=== PATIENT | female | born 1935 | race Caucasian/White ===

== ENCOUNTER 2018-12-14 11:43 | Observation (INO) | payer MEDICARE ==
[2018-12-14 12:19] LABS: #Eosinphils 0.1 thou/uL (0.0-0.7); #Lymphocytes 1.3 thou/uL (1.20-3.40); #Monocytes 0.5 thou/uL (0.11-0.59); #Neutrophils 4.1 thou/uL (1.40-6.50); %Basophils 0.4 % (0.0-1.0); %Eosinophils 1.4 % (0.0-10.0); %Monocytes 8.1 % (0.0-10.0); %Neutrophils 68.2 % (42.0-75.0); Hemoglobin 12.8 g/dL (12.0-16.0); Mean Corpuscular HGB CONC 32.2 g/dL (32.0-36.0); Mean Corpuscular Volume 87.1 fL (78.0-98.0); Platelet Count 196 thou/uL (130-400); RBC Distribution Width 13.6 % (11.5-14.5); Red Blood Cell (RBC) Count 4.56 mill/uL (4.20-5.40)
[2018-12-14 12:50] LABS: ALT (SGPT) 18 U/L (8-55); AST (SGOT) 27 U/L (5-34); Albumin 4.1 g/dL (3.4-4.8); Alkaline Phosphatase 105 U/L (40-150); Anion Gap 14 mmol/L (10-20); BUN (Urea Nitrogen) 25 mg/dL (9.8-20.1); Bilirubin, Total 0.6 mg/dL (0.2-1.2); CK (CPK) 162 U/L (29-168); Calc. Creatinine Clearance 0 mL/min (70-130); Carbon Dioxide 25 mmol/L (23-31); Chloride 104 mmol/L (98-107); Estimated GFR-MDRD 40; Globulin 3.1 g/dL (2.4-3.5); Glucose 102 mg/dL (83-110); Potassium 3.8 mmol/L (3.5-5.1); Protein, Total 7.2 g/dL (6.0-8.3); Sodium 139 mmol/L (136-145)
[2018-12-14] MEDS ORDERED: cefTRIAXone\\ROCEPHIN 2 GM VIAL ONE (12:52)
[2018-12-14] MEDS ORDERED: ISOVUE-370 76%-LOCM 1 ML ONE (13:46)
--- NOTE | 2018-12-14 13:48 | RAD ---
PA AND LATERAL CHEST: HISTORY: Shortness of breath. History of bronchitis. FINDINGS: Heart size is within normal limits. There are atherosclerotic changes of the aorta. Some linear sca rring in the region of the lingula. There is no focal infiltrative process. IMPRESSION: No active intrathoracic disease. POS: [facility]
[2018-12-14 15:15] VITALS: BMI 29.3
[2018-12-14] MEDS ORDERED: Ondansetron ODT 4 MG TAB SL PRN (15:54)
[2018-12-14] MEDS ORDERED: Ondansetron PF 4 MG/2 ML Vial IVP PRN (15:54)
[2018-12-14] MEDS ORDERED: Senokot S 8.6-50 MG TAB PO PRN (17:06)
[2018-12-14] MEDS ORDERED: Acetaminophen 325 MG TAB PO PRN (17:06)
[2018-12-14] MEDS ORDERED: cefTRIAXone\\ROCEPHIN 1 GM in Sodium Chloride 0.9% 100 ML IVPB SCH (17:15)
[2018-12-14] MEDS ORDERED: Diabetic Tussin 200 MG/10 ML UDCUP PO PRN (17:47)
--- NOTE | 2018-12-14 17:50 | HP ---
PRIMARY CARE PROVIDER: Dr. Angel Merrill in [place], [place]. CHIEF COMPLAINT: Shortness of breath. HISTORY OF PRESENT ILLNESS: Ms. Pike is a pleasant 83-year-old lady, who was seen at [facility] on December 14, 2018. Two weeks ago flew from [place] to [place] to go on an [facility] cruise. She reports that during that trip, the passenger behind her was coughing. While on the cruise, she started having cough and feeling unwell. Towards the end of the cruise, she was seen at Urgent Care in [place] and was prescribed nebulizers and cough medication. She returned to this area on December 11. She went to an urgent care clinic. She was started on azithromycin. She reports that she continues to have cough that is productive of greenish sputum. She felt feverish, although she did not check her temperature. She also reports nausea, dizziness, and fatigue. She came to the emergency room because of ongoing symptoms. REVIEW OF SYSTEMS: All other systems were reviewed and found to be negative. PAST MEDICAL HISTORY: Thyroid nodule, osteoarthritis, and hypertension. SURGICAL HISTORY: Oophorectomy, ovarian cyst removal, bowel resection, cholecystomy followed by reversal, thyroid nodule surgery and minimally invasive back surgery. SOCIAL HISTORY: The patient denies tobacco use, alcohol use, or recreational drug use. FAMILY HISTORY: Family history of premature coronary artery disease. ALLERGIES: NONSTEROIDAL ANTI-INFLAMMATORY AGENTS AND TRAMADOL. CURRENT MEDICATIONS: 1. Aspirin 81 mg daily. 2. Gabapentin 300 mg 2 times a day. 3. Tylenol Extra Strength as needed. 4. Benicar HCT 20/12.5 mg daily. 5. Methimazole 5 mg daily. 6. Celebrex 200 mg daily. CODE STATUS: I discussed her code status. She is full code. PHYSICAL EXAMINATION: GENERAL: Ms. Pike is awake and alert, not in acute distress. VITAL SIGNS: Blood pressure is 140/77, pulse 79, respiratory rate 18, and oxygen saturation 98% on 2 L of oxygen. She is afebrile. EYES: No scleral icterus, no conjunctival pallor. ENT: Moist mucosal membranes. No oropharyngeal erythema or exudates. NECK: Supple, nontender, trachea is midline. RESPIRATORY: Accessory muscles of breathing are not active. Chest wall movements are symmetric bilaterally. LUNGS: Reveals diffuse expiratory wheeze. CARDIOVASCULAR: S1 and S2 are heard, regular. Peripheral pulses palpable. No carotid bruit. No pericardial rub. ABDOMEN: Soft, nontender, bowel sounds heard, no hepatomegaly, no splenomegaly. NEUROLOGIC: Cranial nerves 2 through 12 intact, deep tendon reflexes 2+. MUSCULOSKELETAL: Power is 5/5 in all 4 extremities. SKIN: No rashes or subcutaneous nodules. LYMPHATIC: No cervical lymphadenopathy. PSYCHIATRIC: Normal mood, normal affect, the patient is oriented to person, place, and time. LABORATORY DATA: Ms. Pike's labs and investigations were reviewed. I reviewed her electrocardiogram, which shows normal sinus rhythm, no ST changes to suggest an acute coronary syndrome. I also reviewed her chest x-ray, which does not show any pulmonary infiltrates. She has an unremarkable CBC and normal electrolytes. Blood urea nitrogen and creatinine are elevated at 25 and 1.28 respectively. BNP is mildly elevated at 143.5. Troponin I is normal. LFTs are normal. ASSESSMENT AND PLAN: Ms. Pike is a pleasant 83-year-old lady, seen at [facility] on December 14, 2018. Her problem list includes: 1. Acute bronchitis: Ms. Pike is presenting with acute bronchitis. She will be admitted to the hospital for further management. She will receive intravenous ceftriaxone and levofloxacin. She will also receive bronchodilators, intravenous steroids and p.r.n. oxygen. 2. Hypertension: We will resume her home medications, monitor vital signs and titrate antihypertensives as needed. 3. Hyperthyroidism: We will continue methimazole. 4. Renal failure: Chronicity was unclear. She also has elevated blood urea nitrogen. We will provide intravenous hydration and recheck her labs. 5. We will also check D-dimer to rule out pulmonary embolism, given her recent long distance travel. Many thanks for allowing me to participate in your patient's care. Please feel free to contact me with any questions or concerns. LEVEL OF RISK: High. LEVEL OF COMPLEXITY: High. Job ID: [id number]
--- NOTE | 2018-12-14 17:52 | CT ---
EXAM: CT pulmonary angiogram with IV contrast and 3-D MIP reconstructions PROVIDED CLINICAL HISTORY: Shortness of breath COMPARISON: None FINDINGS: There is no evidence for central or segmental pulmonary embolus. Extensive vascular calcification inc luding coronary calcium. Biapical pleural-parenchymal scarring changes are seen, more conspicuous on the left. 6 mm noncalcified pulmonary nodule right lung base. No pleural fluid or pneumothorax elyssa arent. No evidence for thoracic lymph node enlargement. The airway appears patent and of normal caliber. The visualized portions of the upper abdomen demonstrate no acute findings. The osseous stru ctures demonstrate no concerning lytic or blastic lesions. There is a markedly enlarged thyroid gland which produces prominent rightward deviation of the trachea to the level of the great vessel or igins. IMPRESSION: 1. No evidence for central or segmental pulmonary embolus. 2. 6 millimeter noncalcified right lower lobe pulmonary nodule. Six-month follow-up recommended. 3. Conspicuous atherosclerosis including coronary calcium. 4. 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
[2018-12-14] MEDS: methylPREDNISolone Sod Succ 40 MG VIAL IVP SCH ×2 (17:54→23:59)
[2018-12-15] MEDS: methylPREDNISolone Sod Succ 40 MG VIAL IVP SCH ×2 (04:48→12:23)
[2018-12-15 06:06] LABS: #Lymphocytes 0.7 thou/uL (1.20-3.40); #Monocytes 0.1 thou/uL (0.11-0.59); %Basophils 0.5 % (0.0-1.0); %Eosinophils 0.2 % (0.0-10.0); %Lymphocytes 13.8 % (21.0-51.0); %Monocytes 1.1 % (0.0-10.0); %Neutrophils 84.5 % (42.0-75.0); Hemoglobin 12.6 g/dL (12.0-16.0); Mean Corpuscular HGB CONC 32.4 g/dL (32.0-36.0); Mean Corpuscular Hemoglobin 28.1 pg (27.0-31.0); Mean Corpuscular Volume 86.7 fL (78.0-98.0); Mean Platelet Volume 9.3 fL (7.4-10.4); Platelet Count 209 thou/uL (130-400); RBC Distribution Width 13.6 % (11.5-14.5); Red Blood Cell (RBC) Count 4.49 mill/uL (4.20-5.40); White Blood Cell (WBC) Count 4.8 thou/uL (4.8-10.8)
[2018-12-15 06:26] LABS: Anion Gap 15 mmol/L (10-20); BUN (Urea Nitrogen) 26 mg/dL (9.8-20.1); Calc. Creatinine Clearance 43 mL/min (70-130); Calcium 10.2 mg/dL (7.8-10.44); Carbon Dioxide 24 mmol/L (23-31); Chloride 102 mmol/L (98-107); Estimated GFR-MDRD 38; Glucose 159 mg/dL (83-110); Potassium 4.1 mmol/L (3.5-5.1); Sodium 137 mmol/L (136-145)
[2018-12-15] MEDS ORDERED: Enoxaparin Sodium 40 MG/0.4 ML SYRINGE SC SCH (09:00)
[2018-12-15] MEDS ORDERED: Acetaminophen 500 MG TAB PO PRN (09:03)
[2018-12-15] MEDS ORDERED: Acetaminophen ER (8hr) 650 MG TAB PO PRN (09:04)
[2018-12-15] MEDS ORDERED: Aspirin 81 mg Enteric Coated Tablet PO SCH (10:00)
[2018-12-15] MEDS ORDERED: Hydrochlorothiazide 25 MG TAB PO SCH (10:00)
[2018-12-15] MEDS ORDERED: CeleCOXIB 100 MG CAP PO SCH (10:00)
[2018-12-15] MEDS ORDERED: Methimazole 5 MG TAB PO SCH (10:00)
[2018-12-15] MEDS ORDERED: Gabapentin 100 MG CAP PO SCH ×3 (10:00→15:00)
[2018-12-15] MEDS ORDERED: cefTRIAXone\\ROCEPHIN 1 GM in Sodium Chloride 0.9% 100 ML IVPB SCH (13:00)
[2018-12-15] MEDS ORDERED: cefTRIAXone\\ROCEPHIN 2 GM in Sodium Chloride 0.9% 100 ML IVPB SCH (13:00)
[2018-12-15 16:35] VITALS: BP 109/68; TEMP 98
--- NOTE | 2018-12-15 17:00 | DIS ---
DATE OF ADMISSION: 12/14/2018 DATE OF DISCHARGE: 12/15/2018 PRIMARY CARE PROVIDER: Dr. Merrill in [place], [place]. DISCHARGE DIAGNOSES: 1. Acute bronchitis. 2. Pulmonary nodule. CONDITION: Condition of the patient on the day of discharge, stable. I assessed Ms. Pike on the day of discharge. She denies any chest pain or shortness of breath. Vital signs are stable. S1 and S2 are heard, regular. Lungs are clear to auscultation bilaterally. DISCHARGE MEDICATIONS: 1. Tylenol Extra Strength p.r.n. 2. Aspirin 81 mg daily. 3. Celebrex 200 mg daily. 4. Gabapentin 200 mg 3 times a day. 5. Methimazole 5 mg daily. 6. Benicar HCT 20/12.5 mg daily. 7. Cefdinir 300 mg b.i.d. for 10 days. 8. Proventil HFA 2 puffs every 6 hours as needed. 9. Oral prednisone taper. HOSPITAL COURSE: Ms. Pike is a pleasant 83-year-old lady, who was admitted to [facility] on December 14, 2018, for acute bronchitis. Please refer to my history and physical note dated December 14, 2018, for further details. She had an elevated D-dimer. CT angiogram of the chest did not show any evidence of pulmonary embolism. She had a 6-mm noncalcified right lower lobe pulmonary nodule. Radiologist recommends 6-month followup. I have advised her to discuss with her primary care provider for the same. She also had a large and substernal goiter with prominent mass effect on the trachea at the thoracic inlet. She improved with oxygen, steroids, bronchodilators, and antibiotics. She is being discharged home in a stable condition. She also had renal insufficiency, with a creatinine of 1.28 on the day of admission and 1.32 on the day of discharge. It is unclear how long she has had renal insufficiency. I have advised her to follow up with her primary care provider for management of renal insufficiency. BNP was slightly elevated at 143.5 during this hospitalization. On the day of discharge, she has normal electrolytes, elevated blood urea nitrogen of 26, elevated creatinine of 1.32, normal calcium. Unremarkable CBC. Normal bicarb. Many thanks for allowing me to participate in your patient's care. Please feel free to contact me with any questions or concerns. DISCHARGE DESTINATION: Home. FOLLOWUP APPOINTMENTS: With primary care provider in 3 days' time. Job ID: [id number] MTDD
[2018-12-16] MEDS ORDERED: Non-Formulary Item 1 EACH (Celecoxib [Celebrex] 200 MG) PO SCH (09:00)
[2018-12-16] MEDS ORDERED: [UNRECOGNIZED DRUG - OTHER] PO SCH (09:00)
[2018-12-16] MEDS ORDERED: CeleCOXIB 100 MG CAP PO SCH ×2 (09:00)
[2018-12-16] MEDS ORDERED: OLMESARTAN PO SCH (09:00)
[2018-12-16] MEDS ORDERED: Aspirin 81 mg Enteric Coated Tablet PO SCH ×2 (09:00)
[2018-12-16] MEDS ORDERED: Methimazole 5 MG TAB PO SCH ×2 (09:00)
[2018-12-16] MEDS ORDERED: HYDROCHLOROTHIAZIDE PO SCH (09:00)
[2018-12-16] MEDS ORDERED: Hydrochlorothiazide 25 MG TAB PO SCH (09:00)
--- NOTE | 2018-12-19 13:03 | EKG ---
Test Reason : SOB Blood Pressure : / mmHG Vent. Rate : 076 BPM Atrial Rate : 076 BPM P-R Int : 114 ms QRS Dur : 112 ms QT Int : 402 ms P-R-T Axes : 084 015 063 degrees QTc Int : 452 ms Normal sinus rhythm Incomplete right bundle branch block Abnormal ECG Confirmed by MATHEUS MOYA, AUBREE Laboy ([id number]), loan expeditor CARMEN HARRELL ([id number]) on 12/19/2018 1:02:57 PM Referred By: MATHEUS Confirmed By:AUBREE JARVIS MD
== END 2018-12-15 17:34 | disposition home or self-care (01) ==
LOC: ERS 11:43 → T4-A 14:47
PROVIDERS: ADMIT Internal Medicine; ATTEND Internal Medicine
DX: J20.9 Acute bronchitis, unspecified (principal); R91.1 Solitary pulmonary nodule; I10 Essential (primary) hypertension; M19.90 Unspecified osteoarthritis, unspecified site; E03.9 Hypothyroidism, unspecified; N19 Unspecified kidney failure; Z79.82 Long term (current) use of aspirin; Z79.899 Other long term (current) drug therapy
CPT/HCPCS: 71046; 71275; 80048; 80053; 82550; 83880; 84484; 85025 ×2; 85379; 87040; 93005; 94640 ×3; 96365; 96366 ×2; 96367; 96372; 96375; 96376 ×2; 97139; 99285; G0378 ×2; 36415; J0696; J1650; J1956; J2920; J3490; J7620; Q9966